=== PATIENT | female | born 1990 | race Caucasian/White ===

== ENCOUNTER 2016-12-03 00:48 | Inpatient (IN) | payer SELFPAY ==
[~2016-12-03] VITALS: Ht 157.5 cm; Wt 75.7 kg
[2016-12-03 02:44] LABS: CLARITY URINE CLEAR (CLEAR); COLOR URINE YELLOW (YELLOW); GLUCOSE URINE NEGATIVE (NEGATIVE); KETONES URINE NEGATIVE (NEGATIVE); LEUKOCYTE ESTERASE URINE 1+ (NEGATIVE); NITRITE URINE NEGATIVE (NEGATIVE); OCCULT BLOOD URINE 2+ (NEGATIVE); PROTEIN URINE NEGATIVE (NEGATIVE); SPECIFIC GRAVITY URINE 1.015 (1.005-1.030); UROBILINOGEN URINE 0.2 E.U./dL (0.2-1.0)
[2016-12-03] MEDS: LACTATED RINGERS 1,000 ML IV SCH ×2 (03:00→06:50)
[2016-12-03] MEDS ORDERED: LACTATED RINGERS 1,000 ML IV SCH ×3 (04:17→09:00)
[2016-12-03] MEDS ORDERED: BETAMETHASONE ACET/BETAMET 30 MG/5 ML VIAL IM SCH (04:30)
[2016-12-03] MEDS ORDERED: PENICILLIN G POTASSIUM 5 MMU in DEXT 5% WATER 100 ML IV SCH (05:00)
[2016-12-03] MEDS ORDERED: MAGNESIUM 20 G PREMIX (L & D) 500 ML IV SCH ×2 (08:00)
[2016-12-03 08:03] LABS: CHLORIDE 105 mEq/L (98-107); INR 0.9; PARTIAL THROMBOPLASTIN TIME 26.4 sec (23.4-31.0); PROTHROMBIN TIME 9.6 sec (9.4-11.6)
[2016-12-03 08:05] LABS: BASOPHILS % 0.4 % (0.0-2.0); EOSINOPHILS % 0.8 % (0.0-5.0); HEMOGLOBIN. 10.4 g/dL (12.0-16.0); LYMPHOCYTES % 16.1 % (20.0-50.0); MEAN CORPUSCULAR HEMOGLOBIN 29.5 pg (28.0-32.0); MEAN CORPUSCULAR VOLUME 87.6 fL (81.0-99.0); MEAN PLATELET VOLUME 9.7 fl (7.4-10.4); MONOCYTES % 5.9 % (2.0-8.0); NEUTROPHILS % 76.8 % (40.0-76.0); PLATELET 174 x1000/uL (130-400); RED BLOOD CELL COUNT 3.53 mill/uL (4.2-5.4); RED CELL DISTRIBUTION WIDTH 13.1 % (11.6-14.6)
[2016-12-03 08:13] LABS: CARBON DIOXIDE 23 mEq/L (21-32)
[2016-12-03] MEDS: PENICILLIN G POTASSIUM 2.5 MMU in DEXTROSE 5% WATER 50 ML IV SCH ×2 (09:00→12:30)
[2016-12-03] MEDS ORDERED: DEXT 5%/LR + PITOCIN 20UNITS/L 1,000 ML IV SCH ×2 (09:33→13:12)
[2016-12-03] MEDS ORDERED: NALOXONE HCL 0.4 MG/ML 1ML VIAL IM PRN (09:45)
[2016-12-03] MEDS ORDERED: METHYLERGONOVINE MALEATE 0.2 MG/ML IM PRN (09:45)
[2016-12-03] MEDS ORDERED: BUTORPHANOL TARTRATE 2 MG/ML VIAL IV PRN (09:45)
[2016-12-03] MEDS ORDERED: LIDOCAINE HCL 1% 20ML VIAL (Pyxis) INJ INFIL SCH (09:45)
[2016-12-03] MEDS ORDERED: CARBOPROST TROMETHAMINE 250 MCG/ML AMPUL IM PRN (09:45)
[2016-12-03 11:28] LABS: RUBELLA IGG 10.7 IU/mL (4.99-10)
[2016-12-03 11:29] LABS: HEPATITIS B SURFACE ANTIGEN NEGATIVE
[2016-12-03] MEDS ORDERED: ACETAMINOPHEN WITH CODEINE 300/30MG TABLET PO PRN ×2 (13:15)
[2016-12-03] MEDS ORDERED: LANOLIN OINT 0.25 GM TUBE TOP PRN (13:15)
[2016-12-03] MEDS ORDERED: DIPHENHYDRAMINE 25MG CAPSULE PO PRN (13:15)
[2016-12-03] MEDS ORDERED: GLYCERIN/WITCH HAZEL LEAF MEDICATED PAD TOP PRN (13:15)
[2016-12-03] MEDS ORDERED: HEMORRHOIDAL SUPP PR PRN (13:15)
[2016-12-03 14:35] VITALS: BP 124/46
[2016-12-03 15:00] VITALS: BP 112/53
[2016-12-03 15:35] LABS: *AMPHETAMINES SCREEN URINE NEGATIVE (NEGATIVE); *BARBITURATES SCREEN URINE NEGATIVE (NEGATIVE); *BENZODIAZEPINES SCREEN URINE NEGATIVE (NEGATIVE); *COCAINE SCREEN URINE NEGATIVE (NEGATIVE); CANNABINOID URINE SCREEN NEGATIVE (NEGATIVE); METHADONE URINE SCREEN NEGATIVE (NEGATIVE); OPIATES URINE SCREEN NEGATIVE (NEGATIVE); PHENCYCLIDINE URINE SCREEN NEGATIVE (NEGATIVE)
[2016-12-03] MEDS ORDERED: TETANUS, DIPHTHERIA, PERTUSSIS VAC/PF 0.5ML (>7YR OLD) IM ONE (16:00)
[2016-12-03 19:15] VITALS: BP 121/57
[2016-12-03] MEDS: SIMETHICONE 80MG TABLET CHEW PO SCH (22:20)
[2016-12-03] MEDS: DOCUSATE SODIUM 100MG CAPSULE PO SCH (22:21)
[2016-12-03] MEDS: MAGNESIUM/ALUMINUM HYDROXIDE/SIMETHICONE 30ML UDC PO SCH (22:21)
[2016-12-03] MEDS: IBUPROFEN 400MG TABLET PO PRN (22:23)
[2016-12-03 22:30] VITALS: BP 111/80
[2016-12-04 07:04] LABS: BASOPHILS % 0.3 % (0.0-2.0); HEMATOCRIT. 31.4 % (36.0-48.0); HEMOGLOBIN. 10.5 g/dL (12.0-16.0); LYMPHOCYTES % 12.6 % (20.0-50.0); MEAN CORPUSCULAR HEMOGLOBIN 29.4 pg (28.0-32.0); MEAN CORPUSCULAR VOLUME 87.7 fL (81.0-99.0); MEAN PLATELET VOLUME 9.9 fl (7.4-10.4); MONOCYTES % 5.9 % (2.0-8.0); NEUTROPHILS % 81.2 % (40.0-76.0); PLATELET 179 x1000/uL (130-400); RED BLOOD CELL COUNT 3.58 mill/uL (4.2-5.4); RED CELL DISTRIBUTION WIDTH 13.5 % (11.6-14.6)
[2016-12-04 08:08] VITALS: BP 102/54
[2016-12-04] MEDS: MAGNESIUM/ALUMINUM HYDROXIDE/SIMETHICONE 30ML UDC PO SCH ×2 (08:19→20:11)
[2016-12-04] MEDS: PRENATAL VIT/FE FUMARATE/FA TABLET PO SCH (08:19)
[2016-12-04] MEDS: SIMETHICONE 80MG TABLET CHEW PO SCH ×2 (08:19→20:12)
[2016-12-04 15:30] VITALS: BP 97/37
[2016-12-04 16:03] VITALS: BP 107/54
[2016-12-04] MEDS: FERROUS SULFATE 325MG TABLET PO SCH (16:22)
[2016-12-04 20:00] VITALS: BP 113/53
[2016-12-04] MEDS: DOCUSATE SODIUM 100MG CAPSULE PO SCH (20:12)
[2016-12-04] MEDS: IBUPROFEN 400MG TABLET PO PRN (20:13)
[2016-12-05] VITALS: BP 106/55
[2016-12-05 08:06] VITALS: BP 107/61
[2016-12-05] MEDS: FERROUS SULFATE 325MG TABLET PO SCH (08:25)
[2016-12-05] MEDS: PRENATAL VIT/FE FUMARATE/FA TABLET PO SCH (08:25)
[2016-12-05] MEDS: SIMETHICONE 80MG TABLET CHEW PO SCH (08:25)
[2016-12-05] MEDS: MAGNESIUM/ALUMINUM HYDROXIDE/SIMETHICONE 30ML UDC PO SCH (08:26)
== END 2016-12-05 10:30 | disposition home or self-care (01) | DRG 560 ==
LOC: L&D 00:48 → OBSVTOIN 00:48 → 7EST PP/OB 14:42
PROVIDERS: ADMIT Specialist; ATTEND Specialist
PROC: 10E0XZZ Delivery of Products of Conception, External Approach (ICD-10-PCS; principal; 2016-12-03 12:52)
DX: O60.12X0 Preterm labor second trimester with preterm delivery second trimester, not applicable or unspecified (principal); D64.9 Anemia, unspecified; Z37.0 Single live birth; O99.02 Anemia complicating childbirth; Z3A.27 27 weeks gestation of pregnancy
CPT/HCPCS: 36415; 76805; 80053; 80305; 81001; 82731; 85025; 85610; 85730; 86592; 86703; 86762; 86850; 86900; 87340; 90715; G0378; J0595; J0702; J2540; J2590; J3475; J3490; J7060; J7120; A4315

== ENCOUNTER 2018-03-20 18:01 | Emergency (ER) | payer MEDICAID ==
[~2018-03-20] VITALS: Ht 152.4 cm; Wt 82.0 kg
[2018-03-20] MEDS ORDERED: ACETAMINOPHEN 325MG TABLET ONE (19:11)
[2018-03-20] MEDS ORDERED: DEXAMETHASONE 10 MG/ML VIAL IM ONE (22:30)
[2018-03-20] MEDS ORDERED: IBUPROFEN 600MG TABLET PO ONE (22:30)
[2018-03-20] MEDS ORDERED: SODIUM CHLORIDE 0.9% 1,000 ML IV ONE (22:30)
[2018-03-21 00:45] VITALS: BP 106/55
== END 2018-03-21 00:45 | disposition home or self-care (01) ==
LOC: ER 18:01
DX: J18.9 Pneumonia, unspecified organism (principal); R50.9 Fever, unspecified
CPT/HCPCS: 71045; 87804; 96372; 99284; J1100; J7030

== ENCOUNTER 2018-03-25 11:56 | Emergency (ER) | payer MEDICAID ==
[~2018-03-25] VITALS: Ht 162.6 cm; Wt 79.0 kg
[2018-03-25] MEDS ORDERED: SODIUM CHLORIDE 0.9% 1000ML BAG (SEPSIS BOLUS) IV ONE (12:45)
[2018-03-25] MEDS ORDERED: ACETAMINOPHEN 325MG TABLET PO ONE (12:45)
[2018-03-25 13:57] LABS: BASOPHILS % 0.3 % (0.0-2.0); EOSINOPHILS % 0.1 % (0.0-5.0); HEMATOCRIT. 41.3 % (36.0-48.0); HEMOGLOBIN. 13.8 g/dL (12.0-16.0); LYMPHOCYTES % 27.9 % (20.0-50.0); MEAN CORPUSCULAR HEMOGLOBIN 28.5 pg (28.0-32.0); MEAN CORPUSCULAR VOLUME 85.1 fL (81.0-99.0); MEAN PLATELET VOLUME 10.1 fl (7.4-10.4); MONOCYTES % 14.1 % (2.0-8.0); NEUTROPHILS % 57.6 % (40.0-76.0); PLATELET 127 x1000/uL (130-400); RED BLOOD CELL COUNT 4.86 mill/uL (4.2-5.4); RED CELL DISTRIBUTION WIDTH 12.8 % (11.6-14.6)
[2018-03-25 14:01] LABS: CHLORIDE 102 mEq/L (98-107)
[2018-03-25 14:03] LABS: CLARITY URINE TURBID (CLEAR); COLOR URINE DARK YELLOW (YELLOW); KETONES URINE TRACE (NEGATIVE); LEUKOCYTE ESTERASE URINE 1+ (NEGATIVE); NITRITE URINE NEGATIVE (NEGATIVE); OCCULT BLOOD URINE NEGATIVE (NEGATIVE); PROTEIN URINE 2+ (NEGATIVE); SPECIFIC GRAVITY URINE 1.034 (1.005-1.030)
[2018-03-25 14:04] LABS: HCG SCREEN NEGATIVE; PARTIAL THROMBOPLASTIN TIME 27.8 sec (23.4-31.0); PROTHROMBIN TIME 9.9 sec (9.1-11.1)
[2018-03-25] MEDS ORDERED: LEVOFLOXACIN 750MG PREMIX 150 ML IV ONE (14:30)
[2018-03-25 16:25] VITALS: BP 113/64
== END 2018-03-25 16:42 | disposition home or self-care (01) ==
LOC: ER 11:56
DX: N39.0 Urinary tract infection, site not specified (principal); R42 Dizziness and giddiness; J40 Bronchitis, not specified as acute or chronic
CPT/HCPCS: 36415; 71045; 80053; 81003; 83605; 83690; 84145; 84703; 85025; 85610; 85730; 87040; 87086; 87804; 93005; 96361; 96365; 99284; J1956; J7030

== ENCOUNTER 2019-03-17 13:36 | Emergency (ER) | payer MEDICAID ==
[~2019-03-17] VITALS: Ht 152.4 cm; Wt 83.0 kg
[2019-03-17] MEDS ORDERED: SODIUM CHLORIDE 0.9% 1,000 ML IV ONE (14:45)
[2019-03-17 15:10] LABS: HEMATOCRIT. 40.6 % (36.0-48.0); HEMOGLOBIN. 13.8 g/dL (12.0-16.0); MEAN CORPUSCULAR HEMOGLOBIN 28.6 pg (28.0-32.0); MEAN CORPUSCULAR VOLUME 84.4 fL (81.0-99.0); MEAN PLATELET VOLUME 9.7 fl (7.4-10.4); PLATELET 189 x1000/uL (130-400); RED BLOOD CELL COUNT 4.81 mill/uL (4.2-5.4); RED CELL DISTRIBUTION WIDTH 12.4 % (11.6-14.6)
[2019-03-17 15:15] LABS: CHLORIDE 103 mEq/L (98-107)
[2019-03-17 15:42] LABS: PLATELET ESTIMATE NORMAL
[2019-03-17] MEDS ORDERED: KETOROLAC 30MG/ML VIAL IV ONE (16:45)
[2019-03-17 18:15] VITALS: BP 151/73
== END 2019-03-17 18:18 | disposition home or self-care (01) ==
LOC: ER 13:36
DX: J10.1 Influenza due to other identified influenza virus with other respiratory manifestations (principal)
CPT/HCPCS: 36415; 80053; 83605; 85025; 87804; 96374; 99283; J1885; J7030

== ENCOUNTER 2019-05-24 16:32 | Emergency (ER) | payer MEDICAID ==
[~2019-05-24] VITALS: Ht 154.9 cm; Wt 81.0 kg
[2019-05-24] MEDS ORDERED: IBUPROFEN 600MG TABLET PO STA (20:52)
[2019-05-24 21:18] LABS: CLARITY URINE CLOUDY (CLEAR); COLOR URINE YELLOW (YELLOW); KETONES URINE NEGATIVE (NEGATIVE); LEUKOCYTE ESTERASE URINE NEGATIVE (NEGATIVE); NITRITE URINE NEGATIVE (NEGATIVE); OCCULT BLOOD URINE NEGATIVE (NEGATIVE); PROTEIN URINE NEGATIVE (NEGATIVE); UROBILINOGEN URINE 0.2 E.U./dL (0.2-1.0)
[2019-05-24 21:34] VITALS: BP 131/75
== END 2019-05-24 23:20 | disposition home or self-care (01) ==
LOC: ER 16:32
DX: R07.9 Chest pain, unspecified (principal)
CPT/HCPCS: 71045; 81003; 81025; 93005; 99285

== ENCOUNTER 2020-09-26 12:19 | Emergency (ER) | payer MEDICAID ==
[~2020-09-26] VITALS: Ht 165.1 cm; Wt 82.0 kg
[2020-09-26] MEDS ORDERED: KETOROLAC 30MG/ML VIAL IM ONE (13:15)
[2020-09-26] MEDS ORDERED: SUMA25TA9 MT (13:16)
[2020-09-26 13:28] VITALS: BP 138/70
== END 2020-09-26 13:29 | disposition home or self-care (01) ==
LOC: ER 12:19
DX: R51.9 Headache, unspecified (principal)
CPT/HCPCS: 81025; 96372; 99283; J1885

== ENCOUNTER 2023-02-04 10:34 | Emergency (ER) | payer MEDICAID ==
[~2023-02-04] VITALS: Ht 162.6 cm; Wt 91.0 kg
[~2023-02-04 10:34] MED LIST: SUMA25TA9 MT
[2023-02-04 10:52] VITALS: BP 136/78; PULSE 87; RESP 18; TEMP 98.8; O2SAT 100
[2023-02-04] MEDS ORDERED: MED4 MT (12:07)
== END 2023-02-04 14:10 | disposition home or self-care (01) ==
LOC: ER 10:34
DX: B34.9 Viral infection, unspecified (principal)
CPT/HCPCS: 99283

== ENCOUNTER 2023-04-06 12:27 | Emergency (ER) | payer OTHER ==
[~2023-04-06] VITALS: Ht 152.4 cm; Wt 81.6 kg
[~2023-04-06 12:27] MED LIST changes: +MED4 MT
[2023-04-06 12:41] VITALS: BP 142/57; PULSE 83; RESP 16; TEMP 98.2; O2SAT 99
[2023-04-06] MEDS ORDERED: OFLO5DRO4 EACH EAR (12:58)
== END 2023-04-06 16:22 | disposition home or self-care (01) ==
LOC: ER 13:08
DX: H60.93 Unspecified otitis externa, bilateral (principal)
CPT/HCPCS: 99283

== ENCOUNTER 2024-11-29 18:11 | Emergency (ER) | payer OTHER ==
[~2024-11-29] VITALS: Ht 154.9 cm; Wt 81.0 kg
[~2024-11-29 18:11] MED LIST changes: -MED4 MT; +METH4TAB95 MT; +OFLO5DRO4 EACH EAR
[2024-11-29 18:29] VITALS: O2SAT 98
[2024-11-29] MEDS: LIDOCAINE HCL 1% 20ML VIAL INFIL ONE (20:42)
[2024-11-29] MEDS: TETANUS, DIPHTHERIA, PERTUSSIS VAC/PF 0.5ML (>10YR OLD) IM ONE (20:44)
[2024-11-29] MEDS ORDERED: BO1 TP (22:46)
[2024-11-29 23:05] VITALS: BP 139/76; PULSE 66; RESP 16; TEMP 36.8; O2SAT 100
[2024-11-29 23:10] VITALS: TEMP 98.2
[2024-11-29] MEDS: ACETAMINOPHEN 325MG TABLET PO ONE (23:10)
== END 2024-11-29 23:15 | disposition home or self-care (01) ==
LOC: ER 18:11
DX: S61.310A Laceration without foreign body of right index finger with damage to nail, initial encounter (principal); W26.9XXA Contact with unspecified sharp object(s), initial encounter; Y93.89 Activity, other specified; Y92.89 Other specified places as the place of occurrence of the external cause; Y99.8 Other external cause status
CPT/HCPCS: 99283; 73130; 90715; 90471; J2003

== ENCOUNTER 2024-12-20 02:02 | Emergency (ER) | payer OTHER ==
[~2024-12-20] VITALS: Ht 157.5 cm; Wt 82.0 kg
[~2024-12-20 02:02] MED LIST changes: +BO1 TP
[2024-12-20 02:25] VITALS: O2SAT 100
[2024-12-20] MEDS ORDERED: AMOX500T2 MT (02:58)
[2024-12-20] MEDS ORDERED: OFLO5DRO4 LEFT EAR (02:58)
[2024-12-20 03:31] VITALS: BP 152/73; PULSE 81; RESP 18; TEMP 37.7; O2SAT 100
== END 2024-12-20 03:31 | disposition home or self-care (01) ==
LOC: ER 02:02
DX: H60.91 Unspecified otitis externa, right ear (principal); Z79.899 Other long term (current) drug therapy
CPT/HCPCS: 99283